=== PATIENT | male | born 1955 | race Caucasian/White ===

== ENCOUNTER 2025-04-23 06:17 | Day surgery (SDC) | payer OTHER ==
[2025-04-21 13:15] LABS: Absolute Lymphocytes (CBC) 1.6 K/uL (0.7-4.9); Hematocrit 41.8 % (39.6-49.0); Hemoglobin 14.1 g/dL (13.6-17.9); MCH 29.5 pg (27.0-35.0); MCHC 33.8 g/dL (32.0-36.0); MCV 87.5 fL (80-100); MPV 8.8 fL (7.6-11.3); Nucleated RBC Absolute Count 0.0 (0-0); Nucleated Red Blood Cells % 0.0 % (0-0); RBC Red Blood Cell Count 4.78 M/uL (4.33-5.43); White Blood Count 6.40 thou/uL (4.3-10.9)
[2025-04-21 13:28] LABS: Anion Gap 8.0 mEq/L (5.0-15.0); BUN Blood Urea Nitrogen 17.0 mg/dL (7-18); Glucose Level 154.0 mg/dL (74-106); Potassium 4.0 mEq/L (3.5-5.1)
--- NOTE | 2025-04-21 17:13 | RAD REPORT ---
EXAMINATION: TWO VIEW CHEST XR CLINICAL INDICATION: Male, 69 years old. [facility] Pre-op pending hernia repair TECHNIQUE: 2 view radiographs of the chest were performed. COMPARISON: 06/03/2012 FINDINGS: The lungs are well inflated and clear. No pneumothorax or sizable effusion. The heart is normal in si ze. Mediastinal contours are unremarkable. IMPRESSION: No acute or significant abnormalities.
[2025-04-23] MEDS ORDERED: FENTANYL CITR 100 MCG/2 ML ONE (07:03)
[2025-04-23] MEDS ORDERED: ROCURONIUM 50 MG/5 ML VIAL IV ONE (07:03)
[2025-04-23] MEDS ORDERED: LIDOCAINE 2% MPF 5 ML VIAL ONE (07:03)
[2025-04-23] MEDS ORDERED: ONDANSETRON 4 MG/2 ML VIAL ONE (07:03)
[2025-04-23] MEDS ORDERED: SUGAMMADEX SODIUM 200 MG/2 ML VIAL IV ONE (07:20)
[2025-04-23] MEDS ORDERED: EPHEDRINE SULF 50 MG/ML VIAL ONE (07:35)
[2025-04-23] MEDS: Ringers Lactate 1,000 ML IV ONE (07:36)
[2025-04-23] MEDS: CEFAZOLIN SODIUM 2 GM/VIAL ONE (07:38)
[2025-04-23] MEDS ORDERED: KETOROLAC 30 MG/ML INJ ONE (08:24)
--- NOTE | 2025-04-23 08:44 | P.OP ---
Date of Service: 04/23/25 Preop diagnosis: Supraumbilical hernia Postop diagnosis: Incarcerated supraumbilical hernia Procedure performed: Laparoscopic assisted repair of incarcerated supraumbilical hernia Surgeon: Leonel Mei MD Baggageman: None Estimated blood loss: Minimal Specimen: Hernia sac Findings: As above Anesthesia: General Complications: None Drains: None Fluids and blood products: Nonapplicable Disposition: Recovery room Operative note: Patient brought to the OR and placed in supine position. General anesthesia began. Patient prepped and draped in usual sterile fashion. Marcaine 0.5% plain locally. 15 blade used to make a 1 cm left upper quadrant incision. Subcu tissue divided and bleeding controlled cautery. Fascia ident ified and divided. #1 Vicryl stay suture placed. Peritoneal cavity entered with sharp and blunt dissection. 12 mm trocar placed into the peritoneal cavity under direct vision. Pneumoperitoneum established. Under direct vision, one 5 mm trocar placed in the left lower quadrant. Laparoscopy revealed incarcerated omentum and a supraumbilical midline hernia. LigaSure used to remove the omentum and bleeding controlled with the LigaSure. A large hernia sac remained. A 4 cm incision was made above the umbilicus in the midline. Subcutaneous tissue divided and bleeding controlled cautery. Hernia sac identified and excised. The hernia sac was approximately 5 x 4 cm. The defect itself was approximately 3 cm. #1 PDS was used to close the defect. Good fascial edges were obtained for the closure. Then a mesh was placed and secured with absorbable tackers in the standard fashion. The mesh was of the [employer] brand. Complete coverage of the hernia defect was accomplished. There was no evidence of bleeding or bowel injury appreciated. All trocars were removed under direct vision. Stay sutures were tied to each other to reapproximate the fascial defect. Subcutaneous wound irrigated and bleeding controlled cautery. 3-0 chromic used to reapproximate subcutaneous tissue and close skin. Sterile dressing applied. Patient awakened and taken to recovery room in good general c ondition. CC: Dr. Morris'albino
[2025-04-23] MEDS: HYDROMORPHONE HCL 1 MG/ML INJ ONE ×2 (09:03→09:15)
[2025-04-23] MEDS ORDERED: HYDROCODONE/APAP 7.5/325 MG TAB ONE (10:07)
[2025-04-23] MEDS: HYDROCODONE/APAP 7.5/325 MG TAB PO PRN (10:09)
[2025-04-23 11:06] VITALS: BP 147/81; TEMP 97.3; O2SAT 96
== END 2025-04-23 10:30 | disposition home or self-care (01) ==
LOC: OR 06:17
PROVIDERS: ATTEND Surgery
PROC: 0WUF4JZ Supplement Abdominal Wall with Synthetic Substitute, Percutaneous Endoscopic Approach (ICD-10-PCS; principal; 2025-04-23 07:30)
DX: K42.0 Umbilical hernia with obstruction, without gangrene (principal)
CPT/HCPCS: 93005; 85025; 80048; 36415; 82947 ×2; 88302; 71046; 49594; J2704; J2003; J3010; J1100; J1171 ×2; J2405; J7120; 88304; J1885